=== PATIENT | female | born 1960 | race Caucasian/White ===

== ENCOUNTER 2021-10-11 09:32 | Outpatient (REF) | payer MEDICAID, SELFPAY ==
--- NOTE | ~2021-10-11 | MM_ITS ---
EXAMINATION: MM SCREENING DIGITAL BREAST TOMOSYNTHESIS, BILATERAL CLINICAL INFORMATION: Screening. Asymptomatic. Prior [id number] mammography currently unavailable. No known family history breast cancer. The lifetime risk of breast cancer based on the Tyrer-Cuzick Model is 4%. COMPARISON: None. TECHNIQUE: Digital breast tomosynthesis is performed in both the craniocaudal and mediolateral oblique views along with computer-aided detection (CAD). Synthesized 2D images are generated from the tomosynthesis. FINDINGS: There are scattered areas of fibroglandular density (ACR BI-RADS breast composition Category b). There are no significant masses, abnormal calcifications, or other abnormalities. There is biopsy clip marker left breast 12:00 position and 2 biopsy clip markers or surgical clips posterior upper outer right breast. The axilla and skin contours are unremarkable. MM/MM tomosynthesis screening BI IMPRESSION: No mammographic evidence of malignancy. ASSESSMENT: BI-RADS 2: Benign RECOMMENDATION: 1. Routine annual mammography screening. 2. Radiology department staff will attempt to retrieve prior [id number] mammography to allow for comparison in an addendum report. This patient's information was entered into a reminder system with a target due date for their next mammogram.
== END 2021-10-11 09:33 | disposition home or self-care (01) ==
LOC: HO.MAMMO 09:32
PROVIDERS: PCP Internal Medicine Geriatric Medicine; Visit Provider Internal Medicine Geriatric Medicine
DX: Z12.31 Encounter for screening mammogram for malignant neoplasm of breast (principal)
CPT/HCPCS: 77063; 77067

== ENCOUNTER 2022-05-09 13:11 | Outpatient (REF) | payer MEDICAID, SELFPAY ==
--- NOTE | ~2022-05-09 | XR_ITS ---
EXAMINATION: XR CHEST CLINICAL INFORMATION: Cough COMPARISON: None TECHNIQUE: 2 views of the chest were obtained. FINDINGS: The cardiac and mediastinal contours are normal. The lungs are clear. There is no pleural effusion or pneumothorax. There are degenerative changes of the spine. XR/XR chest 2V IMPRESSION: Unremarkable examination.
== END 2022-05-09 13:12 | disposition home or self-care (01) ==
LOC: HO.XRAY 13:11
PROVIDERS: Visit Provider Internal Medicine Geriatric Medicine
DX: R05.9 Cough, unspecified (principal); R06.09 Other forms of dyspnea
CPT/HCPCS: 71046

== ENCOUNTER 2022-05-23 14:32 | Outpatient (REF) | payer MEDICAID, SELFPAY ==
--- NOTE | 2022-05-23 | PFT_ITS ---
FLOWS: FEV1 68% of predicted at 1.56 L. FVC 65% of predicted at 1.89 L. FEV1 to FVC ratio of 0.82. No bronchodilator response. LUNG VOLUMES: Total lung capacity 64% of predicted at 3.07 L. Residual volume 49% of predicted at 0.97 L. Slow vital capacity 74% of predicted at 2.10 L. Expiratory reserve volume 30% of predicted at 0.23 L. Diffusion capacity is moderately decreased, diffusion capacity corrects to normal after adjustment for alveolar ventilation. IMPRESSION: Moderate restrictive ventilatory defect. No bronchodilator response. Decreased expiratory reserve volume suggests extrathoracic restriction, likely secondary to abdominal obesity. Thai Ceja MD AP/MODL / [id number]
== END 2022-05-23 14:33 | disposition home or self-care (01) ==
LOC: HO.RESP 14:32
PROVIDERS: PCP Internal Medicine Geriatric Medicine; Visit Provider Internal Medicine Geriatric Medicine
DX: R06.09 Other forms of dyspnea (principal); R05.9 Cough, unspecified
CPT/HCPCS: 94060; 94727; 94729

== ENCOUNTER 2023-02-04 15:06 | Outpatient (REF) | payer MEDICAID, SELFPAY ==
--- NOTE | ~2023-02-04 | MM_ITS ---
EXAMINATION: MM SCREENING DIGITAL BREAST TOMOSYNTHESIS, BILATERAL CLINICAL INFORMATION: Screening. Asymptomatic. The lifetime risk of breast cancer based on the Tyrer-Cuzick Model is 7.9%. COMPARISON: Mammography: 10/11/2021 and studies dating back to 11/15/2015. TECHNIQUE: Digital breast tomosynthesis is performed in both the craniocaudal and mediolateral oblique views along with computer-aided detection (CAD). Synthesized 2D images are generated from the tomosynthesis. FINDINGS: The breasts are heterogeneously dense, which may obscure small masses (ACR BI-RADS breast composition Category c). There is a stable parenchymal pattern of the right breast with no new abnormal dominant mass or suspicious grouping of microcalcifications. Patient is status post bilateral breast biopsies. Within the deep lateral aspect of the left breast, approximately 7 cm from the nipple, there is a well-circumscribed density measuring approximately 7 x 5 mm in size for which further evaluation with spot compression film and rolled craniocaudal views is recommended. MM/MM tomosynthesis screening BI IMPRESSION: Left breast density for further evaluation. ASSESSMENT: BI-RADS 0: Incomplete - Need Additional Imaging Evaluation RECOMMENDATION: 1. Additional views of the left breast. 2. Targeted ultrasound if warranted after review of the additional views. 3. Radiology department staff will contact the patient for additional imaging. This patient's information was entered into a reminder system with a target due date for their next mammogram.
== END 2023-02-04 15:07 | disposition home or self-care (01) ==
LOC: HO.MAMMO 15:06
PROVIDERS: PCP Internal Medicine Geriatric Medicine; Visit Provider Internal Medicine Geriatric Medicine
DX: Z12.31 Encounter for screening mammogram for malignant neoplasm of breast (principal)
CPT/HCPCS: 77063; 77067

== ENCOUNTER 2023-02-26 14:42 | Outpatient (REF) | payer MEDICAID, SELFPAY ==
--- NOTE | ~2023-02-26 | MM_ITS ---
EXAMINATION: MM DIAGNOSTIC DIGITAL BREAST TOMOSYNTHESIS, LEFT US DIAGNOSTIC ULTRASOUND BREAST, LEFT CLINICAL INFORMATION: Recall from screening for benign-appearing smooth oval asymmetry posterior central 3:00 left breast, around 6 mm. Family history breast cancer, mother. TC score 8%. COMPARISON: Mammography exams including most recent 02/04/2023. TECHNIQUE: Digital breast tomosynthesis is performed. 2D images are generated from the tomosynthesis. The following views are obtained: Spot CC, rolled CC x2. Ultrasound left breast is targeted to the central breast interrogated from 12:00 through 6:00. Grayscale imaging and color Doppler are performed without and with harmonics. FINDINGS: There are scattered areas of fibroglandular density (ACR BI-RADS breast composition Category b). Breast tissue composition borders on heterogeneously dense. The additional views confirm an oval focal nodular asymmetry posterior central 3:00 left breast measuring approximately 6 mm in greatest dimension. Margins are smooth. Ultrasound demonstrates a simple cyst posterior central 3:00 position measuring approximately 6 x 3 x 4 mm. The cyst is anechoic with circumscribed margins. There is increased through-transmission of sound noted at real-time imaging and no associated color flow. This corresponds to the finding on mammography. Results are discussed with the patient at time of visit, using an blanchard grinder operator. MM/MM tomosynthesis diagnostic LT IMPRESSION: Simple cyst posterior central 3:00 position 6 mm in greatest dimension, corresponding to recent mammography. ASSESSMENT: BI-RADS 2: Benign RECOMMENDATION: Routine annual mammography screening. This patient's information was entered into a reminder system with a target due date for their next mammogram.
== END 2023-02-26 14:43 | disposition home or self-care (01) ==
LOC: HO.MAMMO 14:42
PROVIDERS: PCP Internal Medicine Geriatric Medicine; Visit Provider Internal Medicine Geriatric Medicine
DX: N64.89 Other specified disorders of breast (principal)
CPT/HCPCS: 76642; 77061; 77065

== ENCOUNTER → 2023-03-24 10:09 | Outpatient (BNVA) | payer MEDICAID, SELFPAY | PROVIDERS: PCP Internal Medicine Geriatric Medicine; Visit Provider Surgery | DX: D17.9 Benign lipomatous neoplasm, unspecified (principal) | CPT/HCPCS: 99202 ==

== ENCOUNTER 2023-03-24 10:24 | Outpatient (AMB) | payer MEDICAID, SELFPAY ==
[2023-03-24 10:11] VITALS: BP 143/69; PULSE 93
--- NOTE | 2023-03-24 10:11 | MHC.OFFVIS ---
Intake Vital Signs 03/24/23 10:11 Weight 143 lb BP 143/69 H Blood Pressure Location Rt brachial Position Standing Pulse 93 Intake Visit Reasons: lipoma Intake Note: This patient presents for an assessment for lipoma. Patient c/o; multiple lipomas, bilateral thighs. Staff Development Educator Required: Yes Staff Development Educator Language: Oil Seal Assembler Name: Myesha Information Interpreted: non-clinical & clinical Accompanied by: Self / Same As Patient Allergies No Known Allergies Allergy (Verified 03/24/23 10:12) Medication List - Last Reconciled 03/24/23 by Igor Reed MD albuterol sulfate 90 mcg/actuation (Ventolin HFA) 2 puffs inhalation Q4-6H PRN alprazolam 0.5 - 1 mg PO BEDTIME PRN aspirin 81 mg PO QAM atorvastatin 10 mg PO QAM blood pressure test kit-large As directed budesonide-formoterol 160-4.5 mcg/actuation (Symbicort) 2 puffs inhalation BID bupropion HCl 150 mg PO QAM carvedilol 12.5 mg PO furosemide 20 mg PO QAM omeprazole 40 mg PO DAILY prazosin 1 mg PO BID quetiapine 25 - 50 mg PO BEDTIME rosuvastatin 20 mg PO QAM sertraline 100 mg PO DAILY ticagrelor (Brilinta) 90 mg PO trazodone 100 mg PO BEDTIME valsartan 40 mg PO QAM HPI lipoma HPI Details 62-year-old female referred for lipomas. She says that she noticed this comes on her both the left and right thighs for a few months now. She denies increased in size. She denies any pain or discomfort. She denies any drainage or skin changes. [facility] Medical History (Updated 03/24/23 @ 10:34 by Igor Reed MD) Hyperlipidemia Hypertension Multiple lipomas Surgical History History of breast surgery Family History Son Lung cancer Mother Uterine cancer Social History Alcohol intake: never Patient Tobacco Use Status: Former Tobacco user Review of Systems Const Denies chills and Denies fever(s) Card Denies chest pain, Denies dyspnea and Denies dyspnea on exertion Resp Denies cough, Denies dyspnea and Denies dyspnea on exertion GI Denies hematochezia and Denies change in bowel habits Denies hematuria Musc Denies back pain and Denies limited range of motion Neuro Denies focal weakness and Denies convulsions Psych Denies depression and Denies mood swings Physical Exam Vital Signs: Last Vital Signs Pulse 93 03/24/23 10:11 BP 143/69 H 03/24/23 10:11 Const General: comfortable and no acute distress Orientation/consciousness: patient oriented x3 Neck Neck: Yes no lymphadenopathy Resp Auscultation: clear to auscultation bilaterally Cardio Rhythm: regular rhythm GI Palpation (GI): Soft to palpation, nontender and no guarding Neuro General: patient oriented x3 Extrem Other: Lipomas on both the left and right thighs, about 1 cm in size, no skin changes, nontender, no discharge Assessment & Plan Assessment & Plan (1) Multiple lipomas: Code(s): D17.9 - Benign lipomatous neoplasm, unspecified Plan: She has lipomas as described above. I explained to her the option of proceeding with excision. I discussed the technique of this procedure which may be done under local anesthesia. I reviewed the risks including but not limited to bleeding and infections, as well as the benefits and alternatives. She understands and says that at this time, she does not want to proceed. She says she is trying some natural products that she feels will help with her lipoma. I did explained to her that she can come back to the office if she decides to proceed with excision. Coding Level of Care Code New Pt Level 3 (58997) Diagnoses Multiple lipomas D17.9
== END 2023-03-24 10:34 | disposition home or self-care (01) ==
PROVIDERS: PCP Internal Medicine Geriatric Medicine; Visit Provider Surgery
DX: D17.9 Benign lipomatous neoplasm, unspecified (principal)
CPT/HCPCS: 99203

== ENCOUNTER 2023-05-22 15:59 | Outpatient (REF) | payer MEDICAID, SELFPAY ==
--- NOTE | ~2023-05-22 | XR_ITS ---
EXAMINATION: XR LUMBOSACRAL SPINE CLINICAL INFORMATION: Low back pain without sciatica COMPARISON: None available. TECHNIQUE: Three views of the lumbosacral spine. FINDINGS: Vertebral body height is maintained. There are 4-5 mm of anterolisthesis at L4-L5. Degenerative disc disease with disc space narrowing and slight retrolisthesis is evident at L5-S1. There are posterior element hypertrophic changes at L5-S1 and to a lesser extent L4-L5. No suspicious bone lesions are detected. XR/XR lumbar spine 2-3V IMPRESSION: 1. Degenerative disc disease at L5-S1 with retrolisthesis. 2. Mild degenerative anterolisthesis at L4-L5. 3. Posterior element bony proliferative changes in the lower lumbar spine.
== END 2023-05-22 16:00 | disposition home or self-care (01) ==
LOC: HO.HHCX 15:59
PROVIDERS: Visit Provider Family Medicine
DX: M54.50 Low back pain, unspecified (principal)
CPT/HCPCS: 72100

== ENCOUNTER 2023-11-26 10:11 | Outpatient (REF) | payer MEDICAID, SELFPAY ==
[2023-11-26 11:19] LABS: MANUAL DIFF FLAG NO
[2023-11-26 11:35] LABS: Basophils Percent Auto 0.5 % (0-2); Eosinophils Absolute Auto 0.1 X10*3/uL (0.0-0.4); Eosinophils Percent Auto 1.3 % (0-4); Hematocrit 44.5 % (37.0-47.0); Hemoglobin 14.5 g/dl (12.0-16.0); Imm Gran Abs Auto 0.01 X10*3/uL (0.00-0.03); Imm Gran Pct Auto 0.2 % (0.0-0.4); Lymphocytes Absolute Auto 2.6 X10*3/uL (1.2-4.9); Lymphocytes Percent Auto 42.4 % (20-40); Mean Corpuscular HGB Conc 32.6 g/dl (31.0-35.0); Mean Corpuscular Hemoglobin 28.9 pg (27.0-33.0); Mean Corpuscular Volume 88.8 fL (80.0-98.0); Monocytes Absolute Auto 0.6 X10*3/uL (0.1-1.2); Monocytes Percent Auto 10.1 % (2-11); Neutrophils Absolute Auto 2.8 x10*3/uL (2.0-8.3); Neutrophils Percent Auto 45.5 % (45-73); Platelet Count 205 X10*3/uL (160-400); Red Blood Count 5.01 X10*6/uL (4.20-5.50); Red Cell Distribution Width 12.5 % (11.0-16.0); White Blood Count 6.1 X10*3/uL (4.8-10.8)
[2023-11-26 11:43] LABS: Appearance Urine Clear; Color Urine Yellow; Glucose Urine UA Negative (Negative); Leukocyte Esterase Urine Trace (Negative); Nitrite Urine Negative (Negative); Specific Gravity - Urine 1.015 (1.005-1.025); UMIC TRIGGER UACC YES; Urine Blood Negative (Negative); Urine Ketones Negative (Negative); Urine Protein Negative (Neg-Trace)
[2023-11-26 11:48] LABS: Alanine Aminotransferase 17 U/L (0-31); Albumin Level 4.2 g/dL (3.5-5.0); Alkaline Phosphatase 108 U/L (39-117); Anion Gap 11 (12-20); Aspartate Amino Transferase 17 U/L (5-31); Bilirubin Total 0.4 mg/dL (0.0-1.0); Blood Urea Nitrogen 19 mg/dL (9-16); Calcium 10.2 mg/dL (8.4-10.2); Carbon Dioxide 31 mmol/L (22-29); Chloride 103 mmol/L (96-108); Cholesterol 234 mg/dL (<200); Estimated Glomerular Filt Rate > 60; Glucose Random 101 mg/dL (60-115); HDL Cholesterol 53 mg/dL (>40); LDL Cholesterol Calculated 162 mg/dL (<100); Potassium 4.6 mmol/L (3.3-5.1); Sodium 140 mmol/L (135-145); Total Protein 7.5 g/dL (6.5-8.0); Triglycerides 97 mg/dL (<150)
[2023-11-26 11:51] LABS: Bacteria Urine None Seen (None Seen); Hyaline Casts Urine 0-2 /LPF (0-2); RBC Urine 0-2 /HPF (0-2); Squamous Epithelial Cell Urine 0-2 /HPF (0-2); WBC Urine 0-5 /HPF (0-5)
[2023-11-26 12:00] LABS: ~Hepatitis C Antibody Nonreactive (Nonreactive)
== END 2023-11-26 10:12 | disposition home or self-care (01) ==
LOC: HO.HHCL 10:11
PROVIDERS: Visit Provider Internal Medicine Geriatric Medicine
DX: Z00.00 Encounter for general adult medical examination without abnormal findings (principal); R32 Unspecified urinary incontinence; I25.2 Old myocardial infarction; Z11.59 Encounter for screening for other viral diseases; Z28.20 Immunization not carried out because of patient decision for unspecified reason
CPT/HCPCS: 36415; 80053; 80061; 81001; 85025; 86803

== ENCOUNTER 2024-04-14 12:45 | Outpatient (REF) | payer MEDICAID, SELFPAY ==
--- NOTE | ~2024-04-14 | MM_ITS ---
EXAMINATION: MM SCREENING DIGITAL BREAST TOMOSYNTHESIS, BILATERAL CLINICAL INFORMATION: Screening. Asymptomatic. COMPARISON: Mammography: This study is compared with prior exams dating back to 2016. TECHNIQUE: Digital breast tomosynthesis is performed in both the craniocaudal and mediolateral oblique views along with computer-aided detection (CAD). Synthesized 2D images are generated from the tomosynthesis. FINDINGS: There are scattered areas of fibroglandular density (ACR BI-RADS breast composition Category b). There are no significant masses, abnormal calcifications, or other abnormalities. There is a biopsy tissue marker in each breast. MM/MM tomosynthesis screening BI IMPRESSION: No mammographic evidence of malignancy. ASSESSMENT: BI-RADS BI-RADS 2 - Benign Findings RECOMMENDATION: Routine annual mammography screening. 1 year F/U This examination should not preclude the clinical evaluation of a suspicious palpable abnormality. This patient's information was entered into a reminder system with a target due date for their next mammogram.
== END 2024-04-14 12:46 | disposition home or self-care (01) ==
LOC: HO.MAMMO 12:45
PROVIDERS: PCP Internal Medicine Geriatric Medicine; Visit Provider Internal Medicine Geriatric Medicine
DX: Z12.31 Encounter for screening mammogram for malignant neoplasm of breast (principal)
CPT/HCPCS: 77063; 77067

== ENCOUNTER → 2024-04-14 12:45 | Outpatient (BNV) | payer MEDICARE, MEDICAID, SELFPAY | PROVIDERS: PCP Internal Medicine Geriatric Medicine; Visit Provider Radiology Diagnostic Radiology | DX: Z12.31 Encounter for screening mammogram for malignant neoplasm of breast (principal) | CPT/HCPCS: 77063; 77067 ==

== ENCOUNTER 2025-03-25 15:20 | Outpatient (REF) | payer OTHER, SELFPAY ==
--- OUTSIDE RECORDS SUMMARY | 2025-03-25 15:24 | XMS_ITS | Encounter Summary ---
Author Organization [employer] Address [address] [place] [address] [address] [place] [address] Care Team Providers Care Broadcast Meteorologist Name Role Phone Name, Aleksandr MARIE Primary Care Provider [phone] Reason for Visit * Reason Onset Date Comments FYI 05/29/2023 Encounter Details Date Type Department Care Team ([facility] st Contact Info) Description 05/29/2023 Telephone [facility] MEDICINE [address] [place] [address] Name, MD Aleksandr [address] [place] [address] FYI Social History Tobacco Use Types Packs/Day Years Used Date Smoking Tobacco: Former Cigarettes Passive Smoke Exposure: Past Smokeless Tobacco: Never Alcohol Use Standard Drinks/Week Comments Never 0 (1 standard drink = 0.6 oz pur e alcohol) Depression Answer Date Recorded Patient Health Questionnaire-9 Score 20 10/03/2022 Depression Answer Date Recorded Patient Health Questionnaire-2 Score 6 10/03/2022 Comments Unknown Sex and Gender Information Value Date Recorded Sex Assigned at Female 07/15/2022 10:39 AM EDT Legal Sex Female 10:39 AM EDT Gender Identity Female 07/15/2022 10:39 AM EDT Sexual Orientation Choose not to disclose 2021 10:39 AM EDT documented as of this encounter Miscellaneous Notes * Telephone Encounter - Fallon Cuevas RN - 05/30/2023 11:17 AM EDT Noted * Telephone Encounter - Ira Mckeon - 05/29/2023 1:12 PM EDT Tc from george with [facility] calling to advise PCP pt was discharged due to her no longer wanting services. Any questions, please contact george at [phone] documented in this encounter Plan of Treatment Upcoming Encounters Date Type Department Care Team (Late st Contact Info) Description 04/06/2025 2:45 PM EDT Office Visit [facility] MEDICINE [address] [place] [address] Name, MD Aleksandr [address] [place] [address] 06/21/2025 1:00 PM EDT Office Visit [facility] OPTOMETRY [address] [place] [address] Donovan, Macrina, OD [address] [place] [address] documented as of this encounter Visit Diagnoses Not on filedocumented in this encounter Additional Health Concerns Assessment Noted Time PHQ-9 Depression Total Score: 20 023 9:50 AM EST documented as of this encounter Care Teams Broadcast Meteorologist Relationship Specialty Start Date End Date Name, MD Aleksandr [address] [place] [id number] PCP - General Family Medicine 01/09/22 documented as of this encounter
[2025-03-25 16:02] LABS: MANUAL DIFF FLAG NO
[2025-03-25 16:18] LABS: Hematocrit 40.6 % (37.0-47.0); Hemoglobin 13.4 g/dl (12.0-16.0); Imm Gran Abs Auto 0.04 X10*3/uL (0.00-0.03); Imm Gran Pct Auto 0.3 % (0.0-0.4); Lymphocytes Absolute Auto 2.4 X10*3/uL (1.2-4.9); Mean Corpuscular HGB Conc 33.0 g/dl (31.0-35.0); Mean Corpuscular Hemoglobin 29.1 pg (27.0-33.0); Mean Corpuscular Volume 88.3 fL (80.0-98.0); NRBC Abs Auto 0.000 X10*3/uL (0.0-0.012); NRBC Pct Auto 0.0 /100WBC (0.0-0.2); Platelet Count 186 X10*3/uL (160-400); Red Blood Count 4.60 X10*6/uL (4.20-5.50); White Blood Count 13.0 X10*3/uL (4.8-10.8)
[2025-03-25 17:55] LABS: Alanine Aminotransferase 17 U/L (0-31); Albumin Level 4.5 g/dL (3.5-5.0); Alkaline Phosphatase 106 U/L (39-117); Anion Gap 11 (12-20); Aspartate Amino Transferase 22 U/L (5-31); Blood Urea Nitrogen 14 mg/dL (9-16); Calcium 9.9 mg/dL (8.4-10.2); Carbon Dioxide 29 mmol/L (22-29); Chloride 100 mmol/L (96-108); Estimated Glomerular Filt Rate > 60; Potassium 4.2 mmol/L (3.3-5.1); Sodium 136 mmol/L (135-145); Total Protein 7.5 g/dL (6.5-8.0)
[2025-03-25 18:07] LABS: Troponin-I High Sensitivity 2.9 ng/L (<3.5-17.0)
== END 2025-03-25 15:21 | disposition home or self-care (01) ==
LOC: HO.HHCL 15:20
PROVIDERS: PCP General Practice; Visit Provider General Practice
DX: R07.9 Chest pain, unspecified (principal); M79.10 Myalgia, unspecified site
CPT/HCPCS: 36415; 80053; 84484; 85025; 85652; 86140

== ENCOUNTER 2025-06-22 12:22 | Outpatient (REF) | payer OTHER, SELFPAY | END 2025-06-22 12:23 | disposition home or self-care (01) | LOC: HO.MAMMO 12:22 | PROVIDERS: PCP Internal Medicine Geriatric Medicine; Visit Provider General Practice | DX: Z12.31 Encounter for screening mammogram for malignant neoplasm of breast (principal) | CPT/HCPCS: 77063; 77067 ==

== ENCOUNTER → 2025-06-22 12:30 | Outpatient (BNV) | payer OTHER, SELFPAY | PROVIDERS: PCP Internal Medicine Geriatric Medicine; Visit Provider Internal Medicine | DX: Z12.31 Encounter for screening mammogram for malignant neoplasm of breast (principal) | CPT/HCPCS: 77063; 77067 ==

== ENCOUNTER 2025-08-02 10:06 | Outpatient (REF) | payer OTHER, SELFPAY ==
--- NOTE | ~2025-08-02 | US_ITS ---
EXAMINATION: US DIAGNOSTIC ULTRASOUND BREAST, LEFT CLINICAL INFORMATION: Callback from screening for left mass in the retroareolar region/slightly lower outer quadrant. COMPARISON: Prior studies, most recent on June 22, 2025 and as far back as February 04, 2023. Prior left breast ultrasound on February 26, 2023. TECHNIQUE: Ultrasound of the breast is performed with real-time oconnlel scale imaging and color Doppler. FINDINGS: Recently suggested mass in the slightly lower outer quadrant has been previously evaluated in January 2023, when measured approximately 0.6 cm on the mammogram. At the time of the workup in February 2023, the correlating finding was a simple cyst measuring 0.6 x 0.3 x 0.4 cm at 3 o'clock position 2 cm from the nipple. On the most recent mammogram, it measures approximately 0.7-0.8 cm. Targeted ultrasound of the left breast was performed at the location of the previously evaluated correlating sonographic finding. The survey shows a 0.8 x 0.4 x 0.5 cm simple cyst at 3 o'clock position 2 cm from the nipple. No internal vascularity demonstrated with color Doppler evaluation. Results are provided to the patient at time of visit by the technologist. US/US Breast LT Limited Mamm Only IMPRESSION: LEFT BREAST: Simple cyst measuring 0.8 cm at 3 o'clock position 2 cm from the nipple, essentially stable from February 2023. Benign, no evidence of malignancy. Patient may return to routine screening mammogram in 12 months. ASSESSMENT: Category 2: Benign RECOMMENDATION: 1 year F/U This patient's information was entered into a reminder system with a target due date for their next mammogram. Electronically signed by: Bria Yang MD 08/02/2025 12:13 PM [facility]
== END 2025-08-02 10:07 | disposition home or self-care (01) ==
LOC: HO.MAMMO 10:06
PROVIDERS: PCP General Practice; Visit Provider General Practice
DX: N63.23 Unspecified lump in the left breast, lower outer quadrant (principal)
CPT/HCPCS: 76642

== ENCOUNTER → 2025-08-02 11:30 | Outpatient (BNV) | payer OTHER, SELFPAY | PROVIDERS: PCP General Practice; Visit Provider Radiology Body Imaging | DX: N60.02 Solitary cyst of left breast (principal) | CPT/HCPCS: 76642 ==